=== PATIENT | male | born 1975 | race Caucasian/White ===

== ENCOUNTER → 2017-04-28 | Outpatient (CLI) | payer BC ==
[~2017-04-28] MED LIST: ATR10 PO; CIPR-368 PO; CYC10 PO; DICY-42 PO; GLYB2.5T67 PO; HCTZ25 PO; KET10 PO; LANI SQ; LIS5 PO; LOR5 PO; LOR5/325 PO; MET500 PO; METH4TAB57 PO; NSAID; ONDA4TAB97 PO
[2017-04-28 12:57] LABS: PLATELET COUNT, AUTOMATED 171 K/uL (150-450)
== END ==
LOC: LAB 12:40
PROVIDERS: ATTEND Nurse Practitioner Family
DX: R50.9 Fever, unspecified (principal); R10.9 Unspecified abdominal pain; E03.9 Hypothyroidism, unspecified; R94.5 Abnormal results of liver function studies
CPT/HCPCS: 36415; 82040; 82150; 82247; 82310; 82374; 82435; 82565; 82947; 83540; 83550; 83690; 84075; 84132; 84155; 84295; 84443; 84450; 84460; 84520; 84550; 85025

== ENCOUNTER → 2017-04-29 | Outpatient (CLI) | payer BC ==
--- NOTE | 2017-04-29 20:10 | RADIOLOGY IMAGING REPORT ---
FACILITY: [facility] [place]IENT NAME: Jermaine Rivas : 1975 MR: [id number] V: [id number] EXAM DATE: ORDERING PHYSICIAN: MIMI ANGUIANO TECHNOLOGIST: Location: [facility] [place] Patient: Jermaine Rivas : 1975 Visit/Account:[id number] Date of Sevice: 04/29/2017 EXAMINATION: Right upper quadrant abdominal ultrasound HISTORY: Elevated LFTs. COMPARISON: 07/08/2016. FINDINGS: Liver: Normal hepatic echotexture. No focal liver lesions identified. Antegrade flow is visualized in the main portal vein. Gallbladder: Normal sonographic appearance of the gallbladder, without evidence of stones or sludge. No gallbladder wall thickening or pericholecystic fluid. Negative sonographic Elaine sign. Bile Ducts: No biliary ductal dilatation. The common duct measures 5.5 mm. Pancreas: Poorly visualized, obscured by overlying bowel gas. Right kidney: Normal echogenicity of the right kidney. The renal cortical parenchyma is maintained. N o hydronephrosis. The right kidney measures 11.4 cm in length. Aorta: Obscured by overlying bowel gas. IVC: Patent. Ascites: None. IMPRESSION: 1. Normal ultrasound appearance of the liver. 2. Unremarkable gallbladder and bile ducts. No discrete gallstones are visualized. 3. Poor visualization of the pancreas and abdominal aorta. Report Dictated By: Raciel Portillo MD at 04/29/2017 8:01 PM Report E-Signed By: Raciel Portillo MD at 04/29/2017 8:05 PM WSN:[id number]
== END ==
LOC: US 08:52
PROVIDERS: ATTEND Nurse Practitioner Family
DX: R94.5 Abnormal results of liver function studies (principal)
CPT/HCPCS: 76705

== ENCOUNTER 2017-12-02 21:34 | Emergency (ER) | payer BC ==
[2017-12-02] MEDS ORDERED: LEVO-3 PO (21:48)
--- NOTE | 2017-12-02 22:13 | ER Report ---
History and Physical Time Seen By MD: 22:13 Hx. of Stated Complaint: POSSIBLE GALL BLADDER, SUDDEN ONSET OF UPPER ABDOMINAL PAIN HPI/ROS CHIEF COMPLAINT: Abdominal pain HISTORY OF PRESENT ILLNESS: This is a 42 year old male. He has a history of gastric bypass. He came in tonight with sudden onset of upper abdomen/epigastric area pain. This pain tends to be a little bit of a spasming quality at times. He has been feeling this off-and-on for several weeks now. He has had workup on his gallbladder because of this and has had ultrasound and HIDA scan in the past which did not show any abnormality. No history of ulcer disease or pancreatitis. Does not drink. No fevers or chills. Has not been able to relate the pain to any specific foods or times were eating. No diarrhea. No problem with urination. Allergies: Coded Allergies: No Known Allergies (Verified Allergy, Mild, 12/02/17) Home Meds Active Scripts Ondansetron (ZOFRAN ODT) 4 Mg Tab.rapdis, 4 MG PO Q6H PRN for NAUSEA/VOMITING, #20 TAB.JADON 0 Refills Prov:MILI BREAUX MD 12/03/17 Hydrocodone Bit/Acetaminophen (HYDROCODON-ACETAMINOPHEN 5-325) 1 Each Tablet, 1 EACH PO Q4H PRN for PAIN, #12 TAB 0 Refills Prov:MILI BREAUX MD 12/03/17 Omeprazole (OMEPRAZOLE) 40 Mg Capsule.dr, 40 MG PO BID, #60 CAP 0 Refills Prov:MILI BREAUX MD 12/03/17 Reported Medications Levothyroxine Sodium (LEVOTHYROXINE SODIUM) 100 Mcg Tablet, 137 MCG PO QDAY, TAB 12/02/17 Discontinued Reported Medications Ciprofloxacin Hcl (Cipro) 750 Mg Tablet, 750 MG PO BID, #14 06/28/11 Acetaminophen/Hydrocodone (Lortab 5/325 Mg) 5 Mg/325 Mg Tab, 1 TAB PO Q4-6H, #20 06/28/11 Insulin Glargine (Lantus) 100 U/Ml Vial, 70 UNIT SQ QDAY 06/28/11 Atorvastatin (Lipitor) 10 Mg Tab, 10 MG PO QHS 06/28/11 Glyburide (GLYBURIDE) 2.5 Mg Tablet, 2.5 MG PO BID 06/28/11 Acetaminophen/Hydrocodone (Lortab 5/500) 5 Mg/500 Mg Tab, 1 EA PO Q4-6H, 0 Refills TOOK LAST DOSE AT 1600 03/12/08 Lisinopril (Prinivil) 5 Mg Tab, 5 MG PO QDAY, 0 Refills DOSE UNCERTAIN 03/12/08 Hydrochlorothiazide (Hydrochlorothiazide) 25 Mg Tab, 25 MG PO QDAY, 0 Refills 03/12/08 Metformin Hcl (Glucophage) 500 Mg Tab, 500 MG PO BIDBS, 0 Refills 03/12/08 Discontinued Scripts Ondansetron Hcl (ZOFRAN) 4 Mg Tablet, 4 MG PO Q8H for Nausea, #15 TAB 0 Refills Prov:CHAPO DISLA MD 06/27/16 Dicyclomine Hcl (BENTYL) 10 Mg Capsule, 20 MG PO QID for abdominal cramping, #30 CAPSULE 0 Refills Prov:CHAPO DISLA MD 06/27/16 Reviewed Nurses Notes: Yes Hx Smoking: No Hx Substance Use Disorder: No Hx Alcohol Use: No Constitutional Vital Sign - Last 24 Hours 12/02/17 12/02/17 12/02/17 12/03/17 21:44 22:00 23:00 01:00 Temp 97.8 Pulse 65 88 76 89 Resp 14 18 B/P (MAP) 109/75 126/92 (103) 104/68 (80) 100/56 (71) Pulse Ox 96 O2 Delivery Room Air Physical Exam General Appearance: The patient is alert. Having some acute distress because of his pain. Non-toxic in appearance. Eyes: Pupils are equal, round. No pallor, injection or icterus. ENT: Mucous membranes are moist. Normal oral mucosa. Posterior oropharynx is normal. Respiratory: Lungs are clear to auscultation. Cardiovascular: Regular rate and rhythm. No murmurs, gallops or rubs. Gastrointestinal: Abdomen is soft. He has tenderness in the epigastric area. Negative Elaine sign. Nondistended. Has some guarding but no rebound. No masses or organomegaly. Normal active bowel sounds. No costovertebral angle tenderness with percussion. Neurological: Alert and oriented x3. No focal neurologic deficits Skin: Warm and dry. Musculoskeletal: Extremities are nontender. No tenderness in palpation of the cervical, thoracic and lumbar spine. DIFFERENTIAL DIAGNOSIS: After history and physical exam, differential diagnosis was considered for epigastric pain including but not limited to biliary colic, cholecystitis, peptic ulcer disease, pancreatitis, and gastroenteritis. Medical Decision Making Data Points Result Diagram: 12/02/17220412/02/172204 Laboratory Hematology Test 12/02/17 22:05 Red Blood Count 5.14 M/uL (4.00-5.60) Mean Corpuscular Volume 91.4 fL (80.0-96.0) Mean Corpuscular Hemoglobin 31.3 pg (26.0-33.0) Mean Corpuscular Hemoglobin Concent 34.2 g/dL (32.0-36.0) Red Cell Distribution Width 13.3 % (11.5-14.5) Mean Platelet Volume 8.5 fL (7.2-11.1) Neutrophils (%) (Auto) 61.5 % (39.4-72.5) Lymphocytes (%) (Auto) 26.1 % (17.6-49.6) Monocytes (%) (Auto) 8.7 % (4.1-12.4) Eosinophils (%) (Auto) 2.9 % (0.4-6.7) Basophils (%) (Auto) 0.8 % (0.3-1.4) Nucleated RBC Relative Count (auto) 0.0 /100WBC Neutrophils # (Auto) 4.5 K/uL (2.0-7.4) Lymphocytes # (Auto) 1.9 K/uL (1.3-3.6) Monocytes # (Auto) 0.6 K/uL (0.3-1.0) Eosinophils # (Auto) 0.2 K/uL (0.0-0.5) Basophils # (Auto) 0.1 K/uL (0.0-0.1) Nucleated RBC Absolute Count (auto) 0.00 K/uL D-Dimer Quantitative (PE/DVT) 0.35 ug/ml (0-0.50) Sodium Level 141 mmol/L (137-145) Potassium Level 3.7 mmol/L (3.5-5.0) Chloride Level 107 mmol/L (98-107) Carbon Dioxide Level 25 mmol/L (22-30) Blood Urea Nitrogen 22 mg/dl (9-21) Creatinine 0.80 mg/dl (0.66-1.25) Glomerular Filtration Rate Calc > 60.0 Random Glucose 103 mg/dl (75-110) Lactate 0.8 mmol/L (0.7-2.1) Calcium Level 9.3 mg/dl (8.4-10.2) Total Bilirubin 0.8 mg/dl (0.2-1.3) Aspartate Amino Transf (AST/SGOT) 144 U/L (0-35) Alanine Aminotransferase (ALT/SGPT) 118 U/L (0-56) Alkaline Phosphatase 61 U/L (0-126) Total Protein 6.4 g/dl (6.3-8.2) Albumin 3.7 g/dl (3.5-5.0) Amylase Level 85 U/L (0-110) Lipase 207 U/L (23-300) Chemistry Test 12/02/17 22:05 White Blood Count 7.3 k/uL (4.5-11.0) Red Blood Count 5.14 M/uL (4.00-5.60) Hemoglobin 16.1 g/dL (14.0-18.0) Hematocrit 47.0 % (42.0-52.0) Mean Corpuscular Volume 91.4 fL (80.0-96.0) Mean Corpuscular Hemoglobin 31.3 pg (26.0-33.0) Mean Corpuscular Hemoglobin Concent 34.2 g/dL (32.0-36.0) Red Cell Distribution Width 13.3 % (11.5-14.5) Platelet Count 191 K/uL (150-450) Mean Platelet Volume 8.5 fL (7.2-11.1) Neutrophils (%) (Auto) 61.5 % (39.4-72.5) Lymphocytes (%) (Auto) 26.1 % (17.6-49.6) Monocytes (%) (Auto) 8.7 % (4.1-12.4) Eosinophils (%) (Auto) 2.9 % (0.4-6.7) Basophils (%) (Auto) 0.8 % (0.3-1.4) Nucleated RBC Relative Count (auto) 0.0 /100WBC Neutrophils # (Auto) 4.5 K/uL (2.0-7.4) Lymphocytes # (Auto) 1.9 K/uL (1.3-3.6) Monocytes # (Auto) 0.6 K/uL (0.3-1.0) Eosinophils # (Auto) 0.2 K/uL (0.0-0.5) Basophils # (Auto) 0.1 K/uL (0.0-0.1) Nucleated RBC Absolute Count (auto) 0.00 K/uL D-Dimer Quantitative (PE/DVT) 0.35 ug/ml (0-0.50) Glomerular Filtration Rate Calc > 60.0 Lactate 0.8 mmol/L (0.7-2.1) Calcium Level 9.3 mg/dl (8.4-10.2) Total Bilirubin 0.8 mg/dl (0.2-1.3) Aspartate Amino Transf (AST/SGOT) 144 U/L (0-35) Alanine Aminotransferase (ALT/SGPT) 118 U/L (0-56) Alkaline Phosphatase 61 U/L (0-126) Total Protein 6.4 g/dl (6.3-8.2) Albumin 3.7 g/dl (3.5-5.0) Amylase Level 85 U/L (0-110) Lipase 207 U/L (23-300) Coagulation Test 12/02/17 22:05 D-Dimer Quantitative (PE/DVT) 0.35 ug/ml EKG/Imaging Imaging CHEST PA AND LAT COMPARISONS: June 27, 2016 ADDITIONAL PERTINENT HISTORY: Right upper quadrant abdominal and epigastric pain. FINDINGS: Cardiomediastinal silhouette: Negative. Pulmonary vasculature: Negative. Lung renee: Negative. Pleural spaces: Negative. Osseous structures: Mild age indeterminate compression fractures involving the lower thoracic spine. Surrounding soft tissues: Negative. IMPRESSION: No evidence of acute cardiopulmonary disease. Report Dictated By: Ezekiel Leblanc MD at 12/02/2017 11:17 PM ABDOMEN/PELVIS WITH CONTRAST COMPARISONS: None. ADDITIONAL PERTINENT HISTORY: Right upper quadrant and epigastric pain. TECHNIQUE: Multiple axial images were obtained from the lung bases through the lesser trochanters before and after the IV administration of IV contrast. One of the following dose optimization techniques was utilized in the performance of this exam: Automated exposure control; adjustment of the mA and/or kV according to the patient's size; or use of an iterative reconstruction technique. Specific details can be referenced in the facility's radiology CT exam operational policy. CONTRAST: 75 ml of Isovue-370 FINDINGS: Lung bases: Negative. Free air and free fluid: None. Liver: Negative. Spleen: Negative. Kidneys, ureters and urinary bladder: Negative. Adrenal glands: Negative. Pancreas: Negative. Gallbladder: Moderately distended gallbladder which otherwise has a normal appearance. Bowel and mesentery: Patient is undergone previous gastric bypass. The excluded portion of the stomach is rather significantly dilated with an air-fluid level. At the level of the antrum there is suggestion of mild thickening of the wall of the antrum suggesting a possible underlying inflammatory process such as enteritis or peptic ulcer disease which may be causing a functional obstruction at this level. The duodenum and remaining small bowel loops have an unremarkable appearance. Chain sutures are noted within the left upper quadrant at the anastomosis of the jejunum to the nonoccluded portion of the stomach. This region has a normal appearance. Pelvic contents: Negative Lymph node assessment: Negative. Retroperitoneum: Negative. Abdominal vasculature: Negative. Surrounding soft tissues: Negative. Osseous structures: Mild compression fractures at the levels of T11 and T12. Bilateral pars interarticularis defects at L5-S1. Mild spondylitic change involving the lumbar spine. IMPRESSION: 1. Significant distention of the occluded portion of the stomach in a patient with previous gastric bypass surgery with findings suggestive of thickening of the antrum of the stomach which could represent a functional obstruction related to an inflammatory process within the region of the antrum. 2. No other acute intra-abdominal or intrapelvic process. Results were discussed with MILI BREAUX at 12/02/2017 11:37 PM. Report Dictated By: Ezekiel Leblanc MD at 12/02/2017 11:20 PM ED Course/Re-evaluation Clinical Indication for ER IV: Hydration, IV Access ED Course Labs were obtained. CT scan obtained. Patient was given morphine IV for pain and had a little bit of redness and itching along the arm where the IV was right after this. This looks more like a local histamine reaction but we did give him some Benadryl and the symptoms subsided. CT scan showed the evidence of his old bypass in the stomach pouch remnant did show air-fluid levels mild dilation and some thickening concerning for peptic ulcer disease. The patient did have improvement of his pain. We did give him IV Protonix. He received a liter of normal saline as well. He will call his bariatric surgeon for follow-up and decision on how to address this. In the meantime will continue on omeprazole 40 mg twice a day. Decision to Disposition Date: Dec 03, 2017 Decision to Disposition Time: 00:46 Depart Departure Latest Vital Signs Vital Signs Date Time Temp Pulse Resp B/P (MAP) Pulse Ox O2 Delivery O2 Flow Rate FiO2 12/03/17 01:00 89 18 100/56 (71) 12/02/17 21:44 97.8 96 Room Air Impression: Primary Impression: Gastritis Condition: Improved Disposition: HOME OR SELF-CARE New Scripts Ondansetron (ZOFRAN ODT) 4 Mg Tab.rapdis 4 MG PO Q6H PRN for NAUSEA/VOMITING, #20 TAB.JADON 0 Refills Prov: MILI BREAUX MD 12/03/17 Hydrocodone Bit/Acetaminophen (HYDROCODON-ACETAMINOPHEN 5-325) 1 Each Tablet 1 EACH PO Q4H PRN for PAIN, #12 TAB 0 Refills Prov: MILI BREAUX MD 12/03/17 Omeprazole (OMEPRAZOLE) 40 Mg Capsule.dr 40 MG PO BID, #60 CAP 0 Refills Prov: MILI BREAUX MD 12/03/17 Patient Instructions: Gastritis (ED) Additional Instructions: Take Omeprazole 40mg twice a day. Take Lortab 5/325, one every 4 hours as needed for severe pain. Call your bariatric surgeon tomorrow to arrange follow-up. Zofran 4mg, one every 6 hours as needed for nausea. Problem Qualifiers Primary Impression: Gastritis Gastritis type: other gastritis Chronicity: acute Gastritis bleeding: without bleeding Qualified Codes: K29.00 - Acute gastritis without bleeding MILI BREAUX MD Dec 02, 2017 22:13
[2017-12-02 22:39] LABS: PLATELET COUNT, AUTOMATED 191 K/uL (150-450)
[2017-12-02] MEDS ORDERED: IOPAMIDOL 76% 75 ML INFUS BTL 75 ML ONE (22:49)
[2017-12-02] MEDS: ONDANSETRON 4 MG/2 ML VIAL IVP ONE ×2 (23:12→23:37)
[2017-12-02] MEDS ORDERED: MORPHINE 4 MG/ML SDV IVP ONE (23:15)
--- NOTE | 2017-12-02 23:22 | RADIOLOGY IMAGING REPORT ---
FACILITY: [facility] PATIENT NAME: Jermaine Rivas : 1975 MR: [id number] V: [id number] EXAM DATE: ORDERING PHYSICIAN: MILI BREAUX TECHNOLOGIST: Location: [facility] - [place] Patient: Jermaine Rivas : 1975 Visit/Account:[id number] Date of Sevice: 12/02/2017 CHEST PA AND LAT COMPARISONS: June 27, 2016 ADDITIONAL PERTINENT HISTORY: Right upper quadrant abdominal and epigastric pain. FINDINGS: Cardiomediastinal silhouette: Negative. Pulmonary vasculature: Negative. Lung renee: Negative. Pleural spaces: Negative. Osseous structures: Mild age indeterminate compression fractures involving the lower thoracic spine. Surrounding soft tissues: Negative. IMPRESSION: No evidence of acute cardiopulmonary disease. Report Dictated By: Ezekiel Leblanc MD at 12/02/2017 11:17 PM Report E-Signed By: Ezekiel Leblanc MD at 12/02/2017 11:18 PM WSN:[id number]
--- NOTE | 2017-12-02 23:40 | RADIOLOGY IMAGING REPORT ---
FACILITY: [facility] - [place] PATIENT NAME: Jermaine Rivas : 1975 MR: [id number] V: [id number] EXAM DATE: ORDERING PHYSICIAN: MILI BREAUX TECHNOLOGIST: Location: [facility] [place] Patient: Jermaine Rivas : 1975 Visit/Account:[id number] Date of Sevice: 12/02/2017 ABDOMEN/PELVIS WITH CONTRAST COMPARISONS: None. ADDITIONAL PERTINENT HISTORY: Right upper quadrant and epigastric pain. TECHNIQUE: Multiple axial images were obtained from the lung bases through the lesser trochanters bef ore and after the IV administration of IV contrast. One of the following dose optimization technique s was utilized in the performance of this exam: Automated exposure control; adjustment of the mA and/ or kV according to the patient's size; or use of an iterative reconstruction technique. Specific de tails can be referenced in the facility's radiology CT exam operational policy. CONTRAST: 75 ml of Isovue-370 FINDINGS: Lung bases: Negative. Free air and free fluid: None. Liver: Negative. Spleen: Negative. Kidneys, ureters and urinary bladder: Negative. Adrenal glands: Negative. Pancreas: Negative. Gallbladder: Moderately distended gallbladder which otherwise has a normal appearance. Bowel and mesentery: Patient is undergone previous gastric bypass. The excluded portion of the stomac h is rather significantly dilated with an air-fluid level. At the level of the antrum there is sugges tion of mild thickening of the wall of the antrum suggesting a possible underlying inflammatory proce ss such as enteritis or peptic ulcer disease which may be causing a functional obstruction at this le marilee. The duodenum and remaining small bowel loops have an unremarkable appearance. Chain sutures are noted within the left upper quadrant at the anastomosis of the jejunum to the nonoccluded portion of the stomach. This region has a normal appearance. Pelvic contents: Negative Lymph node assessment: Negative. Retroperitoneum: Negative. Abdominal vasculature: Negative. Surrounding soft tissues: Negative. Osseous structures: Mild compression fractures at the levels of T11 and T12. Bilateral pars interarti cularis defects at L5-S1. Mild spondylitic change involving the lumbar spine. IMPRESSION: 1. Significant distention of the occluded portion of the stomach in a patient with previous gastric b ypass surgery with findings suggestive of thickening of the antrum of the stomach which could represe nt a functional obstruction related to an inflammatory process within the region of the antrum. 2. No other acute intra-abdominal or intrapelvic process. Results were discussed with MILI BREAUX at 12/02/2017 11:37 PM. Report Dictated By: Ezekiel Leblanc MD at 12/02/2017 11:20 PM Report E-Signed By: Ezekiel Leblanc MD at 12/02/2017 11:37 PM WSN:[id number]
[2017-12-02] MEDS ORDERED: diphenhydrAMINE 50 MG/ML VIAL IVP ONE (23:50)
[2017-12-03] MEDS ORDERED: PANTOPRAZOLE SOD 40 MG IV VIAL IVP ONE (00:45)
[2017-12-03] MEDS ORDERED: ACET/HYDROC 5/325MG TH ER ONLY 2 TAB/BOTTLE PO ONE (00:45)
[2017-12-03] MEDS ORDERED: LOR5/325 PO (00:47)
[2017-12-03] MEDS ORDERED: OMEP40CA48 PO (00:47)
[2017-12-03] MEDS ORDERED: ONDA4TAB PO (00:49)
[2017-12-03] MEDS ORDERED: ONDANSETRON 4 MG ODT TH SL ONE (00:50)
[2017-12-03 01:00] VITALS: BP 100/56
== END 2017-12-03 01:13 | disposition home or self-care (01) ==
LOC: ER 22:15
DX: K29.00 Acute gastritis without bleeding (principal)
CPT/HCPCS: 71046; 74177; 82150; 83605; 83690; 85025; 85379; 96374; 96375; 99284; C9113; J1200; J2270; J2405; Q9967; S0119; 82040; 82247; 82310; 82374; 82435; 82565; 82947; 84075; 84132; 84155; 84295; 84450; 84460; 84520

== ENCOUNTER 2018-03-07 10:20 | Emergency (ER) | payer BC ==
[2018-03-07] MEDS ORDERED: NS(*) 0.9% 1000 ML BAG 1,000 ML IV ONE (10:46)
--- NOTE | 2018-03-07 10:46 | ER Report ---
History and Physical Time Seen By MD: 10:46 Hx. of Stated Complaint: Pt. has not been feeling well since Thursday. Upper abdominal pain, 8/10 at times. Now pain 4/10. Pt. also reports chills, but hasn't taken his temp. Temp 98.5 in triage. Pt. also reports dark urine and white stools. Allergies: Coded Allergies: lisinopril (Verified Adverse Reaction, Mild, cough, 03/07/18) Home Meds Active Scripts Ondansetron (ZOFRAN ODT) 4 Mg Tab.rapdis, 4 MG PO Q6H PRN for NAUSEA/VOMITING, #20 TAB.JADON 0 Refills Prov:MILI BREAUX MD 12/03/17 Hydrocodone Bit/Acetaminophen (HYDROCODON-ACETAMINOPHEN 5-325) 1 Each Tablet, 1 EACH PO Q4H PRN for PAIN, #12 TAB 0 Refills Prov:MILI BREAUX MD 12/03/17 Omeprazole (OMEPRAZOLE) 40 Mg Capsule.dr, 40 MG PO BID, #60 CAP 0 Refills Prov:MILI BREAUX MD 12/03/17 Reported Medications Levothyroxine Sodium (LEVOTHYROXINE SODIUM) 100 Mcg Tablet, 137 MCG PO QDAY, TAB 12/02/17 Hx Smoking: No Hx Substance Use Disorder: No Hx Alcohol Use: No Constitutional Vital Sign - Last 24 Hours 03/07/18 10:24 Temp 98.5 Pulse 80 Resp 16 B/P (MAP) 142/97 Pulse Ox 96 O2 Delivery Room Air Medical Decision Making Data Points Result Diagram: 03/07/18 1041 03/07/18 1041 Laboratory Hematology Test 03/07/18 10:41 Red Blood Count 5.52 M/uL (4.00-5.60) Mean Corpuscular Volume 90.0 fL (80.0-96.0) Mean Corpuscular Hemoglobin 30.9 pg (26.0-33.0) Mean Corpuscular Hemoglobin Concent 34.3 g/dL (32.0-36.0) Red Cell Distribution Width 13.9 % (11.5-14.5) Mean Platelet Volume 8.1 fL (7.2-11.1) Neutrophils (%) (Auto) 76.8 % (39.4-72.5) Lymphocytes (%) (Auto) 7.6 % (17.6-49.6) Monocytes (%) (Auto) 10.1 % (4.1-12.4) Eosinophils (%) (Auto) 4.3 % (0.4-6.7) Basophils (%) (Auto) 1.2 % (0.3-1.4) Nucleated RBC Relative Count (auto) 0.1 /100WBC Neutrophils # (Auto) 3.7 K/uL (2.0-7.4) Lymphocytes # (Auto) 0.4 K/uL (1.3-3.6) Monocytes # (Auto) 0.5 K/uL (0.3-1.0) Eosinophils # (Auto) 0.2 K/uL (0.0-0.5) Basophils # (Auto) 0.1 K/uL (0.0-0.1) Nucleated RBC Absolute Count (auto) 0.00 K/uL Sodium Level 139 mmol/L (137-145) Potassium Level 4.0 mmol/L (3.5-5.0) Chloride Level 112 mmol/L (98-107) Carbon Dioxide Level 21 mmol/L (22-30) Blood Urea Nitrogen 15 mg/dl (9-21) Creatinine 0.80 mg/dl (0.66-1.25) Glomerular Filtration Rate Calc > 60.0 Random Glucose 156 mg/dl (75-110) Calcium Level 9.0 mg/dl (8.4-10.2) Total Bilirubin 6.2 mg/dl (0.2-1.3) Aspartate Amino Transf (AST/SGOT) 164 U/L (0-35) Alanine Aminotransferase (ALT/SGPT) 298 U/L (0-56) Alkaline Phosphatase 103 U/L (0-126) Total Protein 7.1 g/dl (6.3-8.2) Albumin 3.9 g/dl (3.5-5.0) Lipase 69 U/L (23-300) Chemistry Test 03/07/18 10:41 White Blood Count 4.8 k/uL (4.5-11.0) Red Blood Count 5.52 M/uL (4.00-5.60) Hemoglobin 17.1 g/dL (14.0-18.0) Hematocrit 49.7 % (42.0-52.0) Mean Corpuscular Volume 90.0 fL (80.0-96.0) Mean Corpuscular Hemoglobin 30.9 pg (26.0-33.0) Mean Corpuscular Hemoglobin Concent 34.3 g/dL (32.0-36.0) Red Cell Distribution Width 13.9 % (11.5-14.5) Platelet Count 160 K/uL (150-450) Mean Platelet Volume 8.1 fL (7.2-11.1) Neutrophils (%) (Auto) 76.8 % (39.4-72.5) Lymphocytes (%) (Auto) 7.6 % (17.6-49.6) Monocytes (%) (Auto) 10.1 % (4.1-12.4) Eosinophils (%) (Auto) 4.3 % (0.4-6.7) Basophils (%) (Auto) 1.2 % (0.3-1.4) Nucleated RBC Relative Count (auto) 0.1 /100WBC Neutrophils # (Auto) 3.7 K/uL (2.0-7.4) Lymphocytes # (Auto) 0.4 K/uL (1.3-3.6) Monocytes # (Auto) 0.5 K/uL (0.3-1.0) Eosinophils # (Auto) 0.2 K/uL (0.0-0.5) Basophils # (Auto) 0.1 K/uL (0.0-0.1) Nucleated RBC Absolute Count (auto) 0.00 K/uL Glomerular Filtration Rate Calc > 60.0 Calcium Level 9.0 mg/dl (8.4-10.2) Total Bilirubin 6.2 mg/dl (0.2-1.3) Aspartate Amino Transf (AST/SGOT) 164 U/L (0-35) Alanine Aminotransferase (ALT/SGPT) 298 U/L (0-56) Alkaline Phosphatase 103 U/L (0-126) Total Protein 7.1 g/dl (6.3-8.2) Albumin 3.9 g/dl (3.5-5.0) Lipase 69 U/L (23-300) Depart Departure Latest Vital Signs Vital Signs Date Time Temp Pulse Resp B/P (MAP) Pulse Ox O2 Delivery O2 Flow Rate FiO2 03/07/18 10:24 98.5 80 16 142/97 96 Room Air Condition: Stable Disposition: HOME OR SELF-CARE CLARISSA NEWBY MD Mar 07, 2018 10:46
[2018-03-07 11:03] LABS: PLATELET COUNT, AUTOMATED 160 K/uL (150-450)
--- NOTE | 2018-03-07 11:28 | ER Report ---
History and Physical Time Seen By MD: 11:21 Hx. of Stated Complaint: Pt. has not been feeling well since Thursday. Upper abdominal pain, 8/10 at times. Now pain 4/10. Pt. also reports chills, but hasn't taken his temp. Temp 98.5 in triage. Pt. also reports dark urine and white stools. HPI/ROS CHIEF COMPLAINT: Abdominal pain HISTORY OF PRESENT ILLNESS: This is a 42-year-old male who presents to the emergency department for abdominal pain. Patient states that Thursday he had some generalized right upper and left upper quadrant pain, radiating into the back, progressively getting worse today the pain was too intense, patient decided to come in for further evaluation. Upon arrival the patient's pain has subsided. He also states that his stool consistency has changed, it is pale in color and his urine has concentrated. No nausea or vomiting. Has had some chills, no fevers. No chest pain or shortness of breath. No rashes or headaches. REVIEW OF SYSTEMS: Constitutional: As above. Eyes: No discharge. ENT: No sore throat. Cardiovascular: No chest pain, no palpitations. Respiratory: No cough, no shortness of breath. Gastrointestinal: As above. Genitourinary: No hematuria. Musculoskeletal: As above. Skin: No rashes. Neurological: No headache. Allergies: Coded Allergies: lisinopril (Verified Adverse Reaction, Mild, cough, 03/07/18) Home Meds Active Scripts Omeprazole (OMEPRAZOLE) 40 Mg Capsule.dr, 40 MG PO BID, #60 CAP 0 Refills Prov:MILI BREAUX MD 12/03/17 Reported Medications Levothyroxine Sodium (LEVOTHYROXINE SODIUM) 100 Mcg Tablet, 137 MCG PO QDAY, TAB 12/02/17 Discontinued Scripts Ondansetron (ZOFRAN ODT) 4 Mg Tab.rapdis, 4 MG PO Q6H PRN for NAUSEA/VOMITING, #20 TAB.JADON 0 Refills Prov:MILI BREAUX MD 12/03/17 Hydrocodone Bit/Acetaminophen (HYDROCODON-ACETAMINOPHEN 5-325) 1 Each Tablet, 1 EACH PO Q4H PRN for PAIN, #12 TAB 0 Refills Prov:MILI BREAUX MD 12/03/17 Past Medical/Surgical History The patient has a past medical and surgical history of pneumonia, back pain, gastric bypass, back surgery, exploratory lap, appendectomy. Reviewed Nurses Notes: Yes Hx Smoking: No Hx Substance Use Disorder: No Hx Alcohol Use: No Constitutional Vital Sign - Last 24 Hours 03/07/18 03/07/18 03/07/18 03/07/18 10:24 10:24 10:30 10:50 Temp 98.5 Pulse 80 62 Resp 16 B/P (MAP) 142/97 (112) 142/97 128/87 (101) Pulse Ox 96 96 O2 Delivery Room Air 03/07/18 03/07/18 03/07/18 03/07/18 11:00 11:20 11:38 11:43 Pulse 61 67 B/P (MAP) 102/78 (86) 129/83 (98) Pulse Ox 93 94 03/07/18 03/07/18 03/07/18 03/07/18 12:00 12:13 12:30 12:43 Pulse ??? 58 B/P (MAP) 114/70 (85) 116/69 (85) Pulse Ox 95 95 03/07/18 03/07/18 03/07/18 03/07/18 13:00 13:13 13:30 13:35 Pulse 62 63 B/P (MAP) 117/76 (90) 118/86 (97) Pulse Ox 94 95 03/07/18 03/07/18 03/07/18 03/07/18 14:00 14:05 14:30 14:35 Pulse 63 70 B/P (MAP) 114/84 (94) 112/73 (86) Pulse Ox 94 94 03/07/18 03/07/18 03/07/18 15:00 15:05 15:30 Pulse 66 B/P (MAP) 118/72 (87) 101/61 (74) Pulse Ox 95 Physical Exam General Appearance: The patient is alert, has no immediate need for airway protection and no signs of toxicity. Eyes: Pupils equal and round no pallor or injection. ENT, Mouth: Mucous membranes are moist. Respiratory: There are no retractions, lungs are clear to auscultation. Cardiovascular: Regular rate and rhythm, no murmurs, clicks or rubs. Gastrointestinal: Abdomen is soft, pain with palpation to the epigastrium, right and left upper quadrants, positive Elaine sign. Hyperactive bowel sounds, no abdominal bruits, no masses. Neurological: Alert and oriented 4. Moving all extremities. Following all commands. No focal neuro deficits. Skin: Warm and dry, no rashes. Musculoskeletal: Neck is supple non tender. Extremities are nontender, nonswollen and have full range of motion. DIFFERENTIAL DIAGNOSIS: After history and physical exam differential diagnosis was considered for abdominal pain including but not limited to appendicitis, cholecystitis, gastritis and urinary tract infection. Medical Decision Making Data Points Result Diagram: 03/07/18 1041 03/07/18 1041 Laboratory Hematology Test 03/07/18 10:41 03/07/18 11:33 03/07/18 11:58 Red Blood Count 5.52 M/uL (4.00-5.60) Mean Corpuscular Volume 90.0 fL (80.0-96.0) Mean Corpuscular Hemoglobin 30.9 pg (26.0-33.0) Mean Corpuscular Hemoglobin Concent 34.3 g/dL (32.0-36.0) Red Cell Distribution Width 13.9 % (11.5-14.5) Mean Platelet Volume 8.1 fL (7.2-11.1) Neutrophils (%) (Auto) 76.8 % (39.4-72.5) Lymphocytes (%) (Auto) 7.6 % (17.6-49.6) Monocytes (%) (Auto) 10.1 % (4.1-12.4) Eosinophils (%) (Auto) 4.3 % (0.4-6.7) Basophils (%) (Auto) 1.2 % (0.3-1.4) Nucleated RBC Relative Count (auto) 0.1 /100WBC Neutrophils # (Auto) 3.7 K/uL (2.0-7.4) Lymphocytes # (Auto) 0.4 K/uL (1.3-3.6) Monocytes # (Auto) 0.5 K/uL (0.3-1.0) Eosinophils # (Auto) 0.2 K/uL (0.0-0.5) Basophils # (Auto) 0.1 K/uL (0.0-0.1) Nucleated RBC Absolute Count (auto) 0.00 K/uL Sodium Level 139 mmol/L (137-145) Potassium Level 4.0 mmol/L (3.5-5.0) Chloride Level 112 mmol/L (98-107) Carbon Dioxide Level 21 mmol/L (22-30) Blood Urea Nitrogen 15 mg/dl (9-21) Creatinine 0.80 mg/dl (0.66-1.25) Glomerular Filtration Rate Calc > 60.0 Random Glucose 156 mg/dl (75-110) Calcium Level 9.0 mg/dl (8.4-10.2) Total Bilirubin 6.2 mg/dl (0.2-1.3) Aspartate Amino Transf (AST/SGOT) 164 U/L (0-35) Alanine Aminotransferase (ALT/SGPT) 298 U/L (0-56) Alkaline Phosphatase 103 U/L (0-126) Total Protein 7.1 g/dl (6.3-8.2) Albumin 3.9 g/dl (3.5-5.0) Lipase 69 U/L (23-300) Urine Color [place] Urine Clarity Cloudy Urine pH Color interference Urine Specific [place] Color interference Urine Protein Color interference Urine Glucose (UA) Color interference Urine Ketones Color interference Urine Blood Color interference Urine Nitrite Color interference Urine Bilirubin Color interference Urine Urobilinogen Color interference Urine Leukocyte Esterase Color interference Urine RBC 5 /HPF (0-2/HPF) Urine WBC 824 /HPF (0-5/HPF) Urine Squamous Epithelial Cells Few /LPF (</=FEW) Urine Bacteria Moderate /HPF (NONE-FEW) Urine Mucus Few /HPF (NONE-FEW) Influenza Virus Type A (PCR) Negative (NEGATIVE) Influenza Virus Type B (PCR) Negative (NEGATIVE) Chemistry Test 03/07/18 10:41 03/07/18 11:33 03/07/18 11:58 White Blood Count 4.8 k/uL (4.5-11.0) Red Blood Count 5.52 M/uL (4.00-5.60) Hemoglobin 17.1 g/dL (14.0-18.0) Hematocrit 49.7 % (42.0-52.0) Mean Corpuscular Volume 90.0 fL (80.0-96.0) Mean Corpuscular Hemoglobin 30.9 pg (26.0-33.0) Mean Corpuscular Hemoglobin Concent 34.3 g/dL (32.0-36.0) Red Cell Distribution Width 13.9 % (11.5-14.5) Platelet Count 160 K/uL (150-450) Mean Platelet Volume 8.1 fL (7.2-11.1) Neutrophils (%) (Auto) 76.8 % (39.4-72.5) Lymphocytes (%) (Auto) 7.6 % (17.6-49.6) Monocytes (%) (Auto) 10.1 % (4.1-12.4) Eosinophils (%) (Auto) 4.3 % (0.4-6.7) Basophils (%) (Auto) 1.2 % (0.3-1.4) Nucleated RBC Relative Count (auto) 0.1 /100WBC Neutrophils # (Auto) 3.7 K/uL (2.0-7.4) Lymphocytes # (Auto) 0.4 K/uL (1.3-3.6) Monocytes # (Auto) 0.5 K/uL (0.3-1.0) Eosinophils # (Auto) 0.2 K/uL (0.0-0.5) Basophils # (Auto) 0.1 K/uL (0.0-0.1) Nucleated RBC Absolute Count (auto) 0.00 K/uL Glomerular Filtration Rate Calc > 60.0 Calcium Level 9.0 mg/dl (8.4-10.2) Total Bilirubin 6.2 mg/dl (0.2-1.3) Aspartate Amino Transf (AST/SGOT) 164 U/L (0-35) Alanine Aminotransferase (ALT/SGPT) 298 U/L (0-56) Alkaline Phosphatase 103 U/L (0-126) Total Protein 7.1 g/dl (6.3-8.2) Albumin 3.9 g/dl (3.5-5.0) Lipase 69 U/L (23-300) Urine Color [place] Urine Clarity Cloudy Urine pH Color interference Urine Specific [place] Color interference Urine Protein Color interference Urine Glucose (UA) Color interference Urine Ketones Color interference Urine Blood Color interference Urine Nitrite Color interference Urine Bilirubin Color interference Urine Urobilinogen Color interference Urine Leukocyte Esterase Color interference Urine RBC 5 /HPF (0-2/HPF) Urine WBC 824 /HPF (0-5/HPF) Urine Squamous Epithelial Cells Few /LPF (</=FEW) Urine Bacteria Moderate /HPF (NONE-FEW) Urine Mucus Few /HPF (NONE-FEW) Influenza Virus Type A (PCR) Negative (NEGATIVE) Influenza Virus Type B (PCR) Negative (NEGATIVE) Urinalysis Test 03/07/18 11:33 Urine Color [place] Urine Clarity Cloudy Urine pH Color interference Urine Specific [place] Color interference Urine Protein Color interference Urine Glucose (UA) Color interference Urine Ketones Color interference Urine Blood Color interference Urine Nitrite Color interference Urine Bilirubin Color interference Urine Urobilinogen Color interference Urine Leukocyte Esterase Color interference Urine RBC 5 /HPF (0-2/HPF) Urine WBC 824 /HPF (0-5/HPF) Urine Squamous Epithelial Cells Few /LPF (</=FEW) Urine Bacteria Moderate /HPF (NONE-FEW) Urine Mucus Few /HPF (NONE-FEW) EKG/Imaging Imaging Location: [facility] [place] Patient: Jermaine Rivas : 1975 Visit/Account:[id number] Date of Sevice: 03/07/2018 CT ABDOMEN PELVIS W/ CON History: 42-year-old male with elevated liver enzymes and abdominal pain.. Technique: CT images were obtained through the abdomen and pelvis with intravenous contrast using: Isovue-370 80 mls. Coronal and sagittal reformations were then created. One of the following dose optimization techniques was utilized in the performance of this exam: Automated exposure control; adjustment of the mA and/or kV according to the patient's size; or use of an iterative reconstruction technique. Specific details can be referenced in the facility's radiology CT exam operational policy. Comparison study: CT scan abdomen and pelvis December 02, 2017. Findings: Lung bases: Negative Hepatobiliary: There is no finding of focal lesion in the liver to suggest metastatic disease. The gallbladder is mildly distended. There are no calcified gallstones, but there is prominent enhancement of the wall with mild thickening and prominent pericholecystic fluid. The findings could represent acute cholecystitis. An ultrasound be helpful for further evaluation. Prior ultrasounds have not shown gallstone disease. Bile duct measures 11.5 mm in size which suggests dilatation. No definitive choledocholithiasis can be seen. Spleen: Negative. Adrenals: Negative Pancreas: Negative. Kidneys/genitourinary/retroperitoneum: No findings of a solid or cystic mass. No findings of hydronephrosis or nephrolithiasis. Bowel/peritoneum/mesentery: There has been gastric bypass with a ga strojejunostomy posterior to the transverse colon. Surgical sutures related to the Jacki-en-Y anastomosis are also noted. Normal appendix is not seen. There are no dilated loops of bowel. Pelvic/genital urinary: There is fluid in the pelvis. The prostate is minimally enlarged. There are foci of calculi in the prostate. The bladder is decompressed. There is no inguinal hernia. Vessels: There is no hepatic or portal vein thrombosis. The aorta and iliac vessels are unremarkable. Basilar arteries are unremarkable. There is no deep vein thrombosis.. Lymph node: There are no findings of a bam mass.. Body wall/bones: No findings of a hernia. Peritoneal cavity: There is ascites in the pelvis. There is no pneumoperitoneum. IMPRESSION: 1. The gallbladder is mildly distended and there is mild gallbladder wall thickening with prominent pericholecystic fluid. There are no calculi galls tones, but the findings are suggestive of acute cholecystitis. Correlation with an ultrasound or laboratory values is recommended. Note that prior ultrasounds have not showed gallstone disease. 2. The common bile duct measures 11 mm in size which suggest extra hepatic bile duct dilatation. There are no findings of choledocholithiasis. 3. Status post gastric bypass. 4. Pelvic ascites. Results were called to MEGAN CORONADO M.D. At 03/07/2018 12:59 PM. Report Dictated By: Nestor Stanley MD at 03/07/2018 12:48 PM Report E-Signed By: Nestor Stanley MD at 03/07/2018 12:59 PM WSN:[id number] Location: [facility] [place] Patient: Jermaine Rivas : 1975 Visit/Account:[id number] Date of Sevice: 03/07/2018 GALLBLADDER History: 42-year-old male with gallbladder pain and findings on CT suspicious for acute cholecystitis. Comparison study: CT scan March 07, 2018. Procedure: There has been satisfactory and complete grayscale ultrasonic evaluation of the abdomen. Findings: Liver: The liver has normal echotexture and no focal lesions are seen. Surface contour is smooth. There is hepatopedal blood flow in the main portal vein and there is no abdominal ascites. Biliary: Within a mildly distended gallbladder are multiple small calcified gallstones. The gallbladder wall is thickened to 6.7 mm. During imaging a sonographic Elaine sign was not detected, but further correlation with clinical presentation is recommended since these findings are strongly suspicious for acute cholecystitis. The common bile duct measures 10 mm. Note that the common bile duct was also dilated on CT imaging. There are no findings of choledocho lithiasis, but these findings are suspicious for choledocholithiasis. Pancreas: The pancreas has normal size and echotexture. Right kidney: No hydronephrosis in the right kidney. IMPRESSION: 1. The gallbladder is enlarged and there is prominent wall thickening to 6.7 mm. There are small gallstones in the gallbladder. The findings are very suspicious for acute cholecystitis. During imaging there is no significant Elaine sign, but repeat physical examination is recommended. The patient may have been recently medicated. 2. Common bile duct dilatation to 10 mm. These findings are suspicious for choledocholithiasis in this patient with known small calculi. Results were called to MEGAN CORONADO M.D. At 03/07/2018 2:22 PM. Report Dictated By: Nestor Stanley MD at 03/07/2018 2:16 PM Report E-Signed By: Nestor Stanley MD at 03/07/2018 2:23 PM WSN:[id number] ED Course/Re-evaluation Clinical Indication for ER IV: Hydration, IV Access ED Course The patient was admitted to room. A history of physical were obtained. Differential diagnoses were considered. An IV was started. A CBC, CMP and lipase were obtained. CBC showing no white count, left shift 76.8, chloride 112, glucose 156, total bili 6.2, AST 164, ALT 298, these are up from the patients historical data. UA with signifiant color interferance, urine WBC's 824, negative influenza, hepatitis panel pending. A 1 L normal saline bolus was given. As the patient's symptoms were vague initially, did a CT of the abdomen pelvis which shows the gallbladder is mildly distended and there is mild gallbladder wall thickening with prominent pericholecystic fluid. no calculi gallstones, but the findings are suggestive of acute cholecystitis. Note that prior ultrasounds have not showed gallstone disease. The common bile duct measures 11 mm in size which suggest extra hepatic bile duct dilatation. There are no findings of choledocholithiasis. I reviewed the results with the patient, I did tell him I was going to order a gallbladder ultrasound. Ultrasound showing the gallbladder is enlarged and there is prominent wall thickening to 6.7 mm. There are small gallstones in the gallbladder. The findings are very suspicious for acute cholecystitis. The patient may have been recently medicated. Common bile duct dilatation to 10 mm. These findings are suspicious for chol edocholithiasis in this patient with known small calculi. The resulsts were reviewed with the patient, the case was discussed with Dr. Mosley. He has contacted Dr. Alvarado at [facility], the patient was accepted into the surgical services, he will be transferred via ground EMS for choleycystitis and elevated liver enzymes and elevated total bili. Patient was having increased abdominal pain just prior to transfer, he was given 0.5 mg IV Dilaudid. 03/07/2018 1:03:28 pm received a call from radiology, the CT scan today is different from the previous CT scan concerning for gallbladder disease, I discussed this with the patient I am going to ultrasound the gallbladder. 03/07/2018 3:15:39 pm I did speak with Dr. Mosley, the general surgeon on- call, he feels that the patient will need an ERCP which we do not offer here, this would potentially be a transfer down to the [facility]. 03/07/2018 3:28:[address] Mosley is at the bedside with the patient discussing options and possible transfer to [facility] for ERCP. 03/07/2018 3:54:[address] Mosley did speak with Dr. Ruano at [facility], the patient's has been accepted into the surgical services and will be transferred down possibly by ground as the patient is not acutely sick. No Dr. Funes he is speaking with the patient regarding the transfer either by private car or ambulance. 03/07/2018 4:14:55 pm The patient has elected to transfer to [facility] via EMS. Decision to Disposition Date: Mar 07, 2018 Decision to Disposition Time: 15:55 Depart Departure Latest Vital Signs Vital Signs Date Time Temp Pulse Resp B/P (MAP) Pulse Ox O2 Delivery O2 Flow Rate FiO2 03/07/18 15:30 101/61 (74) 03/07/18 15:05 66 95 03/07/18 10:24 98.5 16 Room Air Impression: Primary Impression: Cholecystitis Additional Impressions: Elevated bilirubin Elevated liver enzymes Condition: Improved Disposition: XFER TO [facility] ([facility]) Problem Qualifiers MEGAN CORONADO HOME SUPERVISOR-BC Mar 07, 2018 11:28
[2018-03-07] MEDS ORDERED: IOPAMIDOL 76% 100 ML INFUS BTL 100 ML ONE (12:22)
--- NOTE | 2018-03-07 13:02 | RADIOLOGY IMAGING REPORT ---
FACILITY: [facility] PATIENT NAME: Jermaine Rivas : 1975 MR: [id number] V: [id number] EXAM DATE: ORDERING PHYSICIAN: MEGAN CORONADO TECHNOLOGIST: Location: [facility] Patient: Jermaine Rivas : 1975 Visit/Account:[id number] Date of Sevice: 03/07/2018 CT ABDOMEN PELVIS W/ CON History: 42-year-old male with elevated liver enzymes and abdominal pain.. Technique: CT images were obtained through the abdomen and pelvis with intravenous contrast using: I sovue-370 80 mls. Coronal and sagittal reformations were then created. One of the following dose optimization techniques was utilized in the performance of this exam: Autom ated exposure control; adjustment of the mA and/or kV according to the patient's size; or use of an i terative reconstruction technique. Specific details can be referenced in the facility's radiology C T exam operational policy. Comparison study: CT scan abdomen and pelvis December 02, 2017. Findings: Lung bases: Negative Hepatobiliary: There is no finding of focal lesion in the liver to suggest metastatic disease. The ga llbladder is mildly distended. There are no calcified gallstones, but there is prominent enhancement of the wall with mild thickening and prominent pericholecystic fluid. The findings could represent ac scar cholecystitis. An ultrasound be helpful for further evaluation. Prior ultrasounds have not shown gallstone disease. Bile duct measures 11.5 mm in size which suggests dilatation. No definitive choled ocholithiasis can be seen. Spleen: Negative. Adrenals: Negative Pancreas: Negative. Kidneys/genitourinary/retroperitoneum: No findings of a solid or cystic mass. No findings of hydronep hrosis or nephrolithiasis. Bowel/peritoneum/mesentery: There has been gastric bypass with a gastrojejunostomy posterior to the t ransverse colon. Surgical sutures related to the Jacki-en-Y anastomosis are also noted. Normal appendi x is not seen. There are no dilated loops of bowel. Pelvic/genital urinary: There is fluid in the pelvis. The prostate is minimally enlarged. There are f oci of calculi in the prostate. The bladder is decompressed. There is no inguinal hernia. Vessels: There is no hepatic or portal vein thrombosis. The aorta and iliac vessels are unremarkable. Basilar arteries are unremarkable. There is no deep vein thrombosis.. Lymph node: There are no findings of a bam mass.. Body wall/bones: No findings of a hernia. Peritoneal cavity: There is ascites in the pelvis. There is no pneumoperitoneum. IMPRESSION: 1. The gallbladder is mildly distended and there is mild gallbladder wall thickening with prominent p ericholecystic fluid. There are no calculi gallstones, but the findings are suggestive of acute clarence cystitis. Correlation with an ultrasound or laboratory values is recommended. Note that prior ultraso unds have not showed gallstone disease. 2. The common bile duct measures 11 mm in size which suggest extra hepatic bile duct dilatation. Ther e are no findings of choledocholithiasis. 3. Status post gastric bypass. 4. Pelvic ascites. Results were called to MEGAN CORONADO M.D. At 03/07/2018 12:59 PM. Report Dictated By: Nestor Stanley MD at 03/07/2018 12:48 PM Report E-Signed By: Nestor Stanley MD at 03/07/2018 12:59 PM WSN:[id number]
--- NOTE | 2018-03-07 14:27 | RADIOLOGY IMAGING REPORT ---
FACILITY: [facility] - [place] PATIENT NAME: Jermaine Rivas : 1975 MR: [id number] V: [id number] EXAM DATE: ORDERING PHYSICIAN: MEGAN CORONADO TECHNOLOGIST: Location: [facility] [place] Patient: Jermaine Rivas : 1975 Visit/Account:[id number] Date of Sevice: 03/07/2018 GALLBLADDER History: 42-year-old male with gallbladder pain and findings on CT suspicious for acute cholecystitis . Comparison study: CT scan March 07, 2018. Procedure: There has been satisfactory and complete grayscale ultrasonic evaluation of the abdomen. Findings: Liver: The liver has normal echotexture and no focal lesions are seen. Surface contour is smooth. The re is hepatopedal blood flow in the main portal vein and there is no abdominal ascites. Biliary: Within a mildly distended gallbladder are multiple small calcified gallstones. The gallbladd er wall is thickened to 6.7 mm. During imaging a sonographic Elaine sign was not detected, but furthe r correlation with clinical presentation is recommended since these findings are strongly suspicious for acute cholecystitis. The common bile duct measures 10 mm. Note that the common bile duct was also dilated on CT imaging. There are no findings of choledocholithiasis, but these findings are suspicio us for choledocholithiasis. Pancreas: The pancreas has normal size and echotexture. Right kidney: No hydronephrosis in the right kidney. IMPRESSION: 1. The gallbladder is enlarged and there is prominent wall thickening to 6.7 mm. There are small gall stones in the gallbladder. The findings are very suspicious for acute cholecystitis. During imaging t here is no significant Elaine sign, but repeat physical examination is recommended. The patient may have been recently medicated. 2. Common bile duct dilatation to 10 mm. These findings are suspicious for choledocholithiasis in thi s patient with known small calculi. Results were called to MEGAN CORONADO M.D. At 03/07/2018 2:22 PM. Report Dictated By: Nestor Stanley MD at 03/07/2018 2:16 PM Report E-Signed By: Nestor Stanley MD at 03/07/2018 2:23 PM WSN:[id number]
[2018-03-07 15:30] VITALS: BP 101/61
[2018-03-07] MEDS ORDERED: PIPERACILLIN/TAZO*3.375GM VIAL 3.375 GM in NS(*) 0.9% 100 ML ADDVANT BAG 100 ML IVPB ONE (16:20)
[2018-03-07] MEDS ORDERED: PIPERACILLIN/TAZO*3.375GM VIAL 0 GM ONE (16:28)
--- NOTE | 2018-03-07 16:28 | General Surgery Consultation ---
History of Present Illness Requesting Physician Dr. Foley Reason for Consult Jaundice and Cholecystitis Chief Complaint RUQ pain and jaundice History of Present Illness This 42 year old male presents to ED with 3 day history of severe RUQ pain. He has had similar episodes over the past year. These typically occur post prandially. He reports he has noted dark urine, acholic stools, and jaundice in the past with these episodes. He reports he was febrile yesterday and has been taking Tylenol. He has had nausea, denies vomiting. His past history is significant for laparoscopic gastric bypass in 2016 and has lost over 200 pounds. He was evaluated by his surgeon in [place] and had an exploratory laparoscopy done on 01/11/2018 at which time nothing was reportedly found. Today he was thoroughly evaluated by the ED and found on CT scan to have a distended and inflammed GB with GB wall thickening. An ultrasound showed gallstones and a 1 cm CBD. His LFT's show his bilirubin to be 6.2, and elevation of his AST and ALT. Alk phos and lipase were normal. History Problems: (1) S/P laparoscopy Onset Date: ~ 01/11/2018 (2) Status post gastric bypass for obesity Onset Date: ~ 2015 (3) Hypertension (4) Hypothyroidism Home Meds Active Scripts Ondansetron (ZOFRAN ODT) 4 Mg Tab.rapdis, 4 MG PO Q6H PRN for NAUSEA/VOMITING, #20 TAB.JADON 0 Refills Prov:MILI BREAUX MD 12/03/17 Hydrocodone Bit/Acetaminophen (HYDROCODON-ACETAMINOPHEN 5-325) 1 Each Tablet, 1 EACH PO Q4H PRN for PAIN, #12 TAB 0 Refills Prov:MILI BREAUX MD 12/03/17 Omeprazole (OMEPRAZOLE) 40 Mg Capsule.dr 40 MG PO BID, #60 CAP 0 Refills Prov:MILI BREAUX MD 12/03/17 Reported Medications Levothyroxine Sodium (LEVOTHYROXINE SODIUM) 100 Mcg Tablet, 137 MCG PO QDAY, TAB 12/02/17 Allergies: Coded Allergies: lisinopril (Verified Adverse Reaction, Mild, cough, 03/07/18) Review of Systems Constitutional: Fever, Weight Loss, Chills Gastrointestinal: Nausea, Abdominal Pain, Other (jaundice, acholic stools) Genitourinary: Other (Dark urine) Exam Vital Signs Vital Signs Date Time Temp Pulse Resp B/P (MAP) Pulse Ox O2 Delivery O2 Flow Rate FiO2 03/07/18 13:30 118/86 (97) 03/07/18 13:13 62 94 03/07/18 10:24 98.5 16 Room Air General Appearance: Alert, Awake, No Acute Distress, Afebrile Neuro: No Gross deficits Eyes: PERRLA, Other (scleral icterus) ENT: Moist Mucous Membranes, Other (icteric under tongue) Cardiovascular: Regular Rate and Rhythm Respiratory: No Respiratory Distress, Clear to Auscultation GI: Other (Flat soft, well healed scars. Tender to palpation in RUQ, positive Elaine's sign) Extremities: Soft and Non Tender Integumentary: Jaundice Psych: Alert & Oriented X3, Appropriate Mood & Affect Medical Decision Making Data Points Result Diagram: 03/07/18 1041 03/07/18 1041 Assessment and Plan Problems: (1) Choledocholithiasis with cholecystitis Status: Acute Assessment & Plan: I have discussed with the patient and his mother the possible treatment options including laparoscopic cholecystectomy and IOC, possible need for ERCP or CBDE. I explained that ERCP is not available at [facility]. He and his mother have had all their questions answered and he wishes to consider being transferred to a facility with ERCP capability, I discussed case with Dr. Ruano at [facility] who is willing to accept the patient in transfer. Patient is stable for transfer. He is receiving Zosyn 3.375 grams IV now. ED is arranging transfer to [facility]. (2) Jaundice Status: Acute (3) Cholecystitis Status: Acute Condition stable Time Spent: < 30 min Venous Thromboembolism VTE Risk Physician Assess for VTE Risk: Yes Patient's VTE Risk: Low VTE Diagnostic Test 2 Days Prior to Admit: No Antithrombotics Is Pt On Any Antithrombotics?: No Prophylaxis Tx Contraindicated Pharmacological Contraindicati: Pt at Low Risk for VTE Mechanical Contraindications: Pt at Low Risk for VTE DENISA ANGUIANO MD Mar 07, 2018 16:28
[2018-03-07] MEDS ORDERED: NS(*) 0.9% 100 ML ADDVANT BAG 100 ML ONE (16:29)
[2018-03-07] MEDS ORDERED: HYDROMORPHONE HCL 1 MG/ML SYRINGE IVP ONE (17:45)
== END 2018-03-07 18:05 | disposition short-term general hospital (02) ==
LOC: ER 10:55
DX: K81.9 Cholecystitis, unspecified (principal); E80.7 Disorder of bilirubin metabolism, unspecified; R79.89 Other specified abnormal findings of blood chemistry
CPT/HCPCS: 74177; 76705; 80074; 81001; 83690; 85025; 87502; 96361; 96365; 96375; 99285; J1170; J2543; J7030; J7050; Q9967; 82040; 82247; 82310; 82374; 82435; 82565; 82947; 84075; 84132; 84155; 84295; 84450; 84460; 84520

== ENCOUNTER → 2018-03-07 | Outpatient (CLI) | payer BC ==
[~2018-03-07] MED LIST changes: +LEVO-3 PO; +OMEP40CA48 PO; +ONDA4TAB PO
== END ==
LOC: AMB 17:29
PROVIDERS: ATTEND Nurse Practitioner
DX: K81.0 Acute cholecystitis (principal); E80.7 Disorder of bilirubin metabolism, unspecified; R10.84 Generalized abdominal pain
CPT/HCPCS: A0425; A0426